=== PATIENT | male | born 1950 | race Caucasian/White ===

== ENCOUNTER 2018-03-10 08:26 | Emergency (ER) | payer MEDICARE, OTHER | END 2018-03-10 08:45 | disposition home or self-care (01) | LOC: SCSER 08:26 | DX: J06.9 Acute upper respiratory infection, unspecified (principal); E78.5 Hyperlipidemia, unspecified; I10 Essential (primary) hypertension; Z79.899 Other long term (current) drug therapy | CPT/HCPCS: 99282 ==

== ENCOUNTER 2019-07-11 09:40 | Emergency (ER) | payer MEDICARE ==
[2019-07-11] MEDS ORDERED: Dexamethasone 10 MG/ML VIAL ONE (10:13)
== END 2019-07-11 10:35 | disposition home or self-care (01) ==
LOC: SCSER 09:40
DX: J00 Acute nasopharyngitis [common cold] (principal); E78.5 Hyperlipidemia, unspecified; E78.00 Pure hypercholesterolemia, unspecified; I10 Essential (primary) hypertension
CPT/HCPCS: 96372; 99283; J1100

== ENCOUNTER 2022-07-17 07:39 | Outpatient (CLI) | payer MEDICARE | END 2022-07-17 07:40 | disposition home or self-care (01) | LOC: SCSMRI 07:39 | PROVIDERS: ATTEND Nurse Practitioner Family | DX: M48.062 Spinal stenosis, lumbar region with neurogenic claudication (principal); M47.816 Spondylosis without myelopathy or radiculopathy, lumbar region; M47.815 Spondylosis without myelopathy or radiculopathy, thoracolumbar region; M47.817 Spondylosis without myelopathy or radiculopathy, lumbosacral region | CPT/HCPCS: 72148 ==

== ENCOUNTER 2024-05-06 08:42 | Outpatient (CLI) | payer MEDICARE | END 2024-05-06 08:43 | disposition home or self-care (01) | LOC: SCSMRI 08:42 | PROVIDERS: ATTEND Nurse Practitioner | DX: M48.061 Spinal stenosis, lumbar region without neurogenic claudication (principal); M47.816 Spondylosis without myelopathy or radiculopathy, lumbar region; G95.9 Disease of spinal cord, unspecified | CPT/HCPCS: 72148 ==